=== PATIENT | male | born 1945 | race Caucasian/White ===

== ENCOUNTER 2024-06-15 14:40 | Outpatient (CLI) | payer MEDICARE, OTHER, SELFPAY ==
--- NOTE | ~2024-06-15 | XR_ITS ---
XR lumbar spine min 4V 06/15/2024 15:10 Indication: Radiculopathy Procedure: 5 views lumbar spine Comparison: No prior studies for comparison. Findings: There is posterior spinal fusion changes at L3-4. There is disc narrowing at this level wit h prosthetic disc device. There is severe disc narrowing at L5-S1 and to a lesser degree L4-5. There is multilevel facet hypertrophy. There is an IVC filter deployed. There are spinal stimulator leads i ncompletely visualized. No acute fracture or traumatic malalignment. Impression: 1: Severe lumbar spondylosis with fusion at L3-4. Reviewed, dictated and finalized at location A. CE ADMINISTRATIVE ASSISTANT Impression: 1: Severe lumbar spondylosis with fusion at L3-4.
== END 2024-06-15 14:41 | disposition home or self-care (01) ==
LOC: MICIMG 14:48
PROVIDERS: PCP Nurse Practitioner Family; Visit Provider Nurse Practitioner Family
DX: M47.26 Other spondylosis with radiculopathy, lumbar region (principal)
CPT/HCPCS: 72110